=== PATIENT | male | born 1975 | race African-American/Black ===

== ENCOUNTER 2019-01-08 01:05 | Emergency (ER) | payer MEDICARE, MEDICAID ==
[~2019-01-08] VITALS: Ht 170.2 cm; Wt 74.4 kg
--- NOTE | 2019-01-08 01:22 | NUR ---
Pt came to ER, c/o fungal infection on feet for 3 years. States he is homeless but lives in a nursing home in [place].
[2019-01-08] MEDS ORDERED: CLOTRIMAZOLE 1% CREAM 30 GM TUBE TOP SCH (01:45)
--- NOTE | 2019-01-08 01:59 | NUR ---
Liam charge nurse left voicemail for [facility].
--- NOTE | 2019-01-08 02:00 | NUR ---
Patient not given Lotrimin due to the hospital not stocking medication. Nursing Television Camera Operator notified. ERMD aware and will be just prescribing the cream instead.
--- NOTE | 2019-01-08 02:01 | NUR ---
Called [employer] [facility] [place] [id number], [place] [address]. . No answer at the snf, left a message. supervisor trust accounts aware.
--- NOTE | 2019-01-08 02:06 | NUR ---
Patient in bed asleep at lowest bed position, side rails upx2, call light within reach. Fall precautions implemented per protocol.
--- NOTE | 2019-01-08 06:26 | NUR ---
Patient given written and verbal discharge instructions. Patient verbalizes understanding of instructions. Patient is ambulatory with steady gait. Refuses offer of longterm placement. Patient given list of available shelters in surrounding area. Bus token offered, patient stated he will go back to his longterm. Patient ambulated with stable gait.
== END 2019-01-08 06:31 | disposition home or self-care (01) ==
LOC: ER 01:09
DX: B35.3 Tinea pedis (principal); F12.10 Cannabis abuse, uncomplicated; Z87.891 Personal history of nicotine dependence
CPT/HCPCS: A4663